=== PATIENT | male | born 1985 | race African-American/Black ===

== ENCOUNTER 2022-10-03 23:21 | Emergency (ER) | payer BC, SELFPAY ==
--- NOTE | ~2022-10-03 | XR_ITS ---
EXAMINATION: XR tibia fibula LT 2V DATE: 10/04/2022 03:00 INDICATION: Left lower leg pain. TECHNIQUE: 2 views of left tibia and fibula on 4 radiographs were obtained. COMPARISON: None. FINDINGS: Bone alignment is normal. No fracture. Joint spaces are well maintained. There is no knee j oint effusion. IMPRESSION: 1. Normal left tibia and fibula. Reviewed, dictated and finalized at location A.
[2022-10-03 23:23] VITALS: BP 132/99; PULSE 81; RESP 14; TEMP 36.6; O2SAT 100
[2022-10-04 03:02] VITALS: BP 136/90; PULSE 74; RESP 18; O2SAT 98
--- NOTE | 2022-10-04 03:06 | PC.NURSE ---
This RN noted no deformity to the back of the right leg/ calf. Pt states when you push and rub on the back of the calf that it starts to burn. This RN did not note any change of temperature to the extremity and felt a pulse to the extremity.
[2022-10-04 03:34] LABS: Basophils Absolute Auto 0.1 K/mm3 (0.0-0.1); Basophils Percent Auto 1.3 % (0.2-1.2); Eosinophils Absolute Auto 0.4 K/mm3 (0-0.3); Eosinophils Percent Auto 8.5 % (0-4.4); Hematocrit 37.1 % (42.0-52.0); Hemoglobin 12.8 g/dL (14.0-18.0); Immature Granulocyte Absolute 0.01 K/mm3 (0.00-0.031); Immature Granulocyte Percent A 0.2 % (0-0.5); Lymphocytes Absolute Auto 1.92 K/mm3 (0.9-3.2); Lymphocytes Percent Auto 41.6 % (18.3-44.2); Mean Corpuscular HGB Conc 34.5 g/dl (32-36); Mean Corpuscular Hemoglobin 30.1 pg (26-34); Mean Corpuscular Volume 87.3 fl (80-100); Mean Platelet Volume 9.1 fl (7.4-10.4); Monocytes Absolute Auto 0.4 K/mm3 (0.1-0.6); Monocytes Percent Auto 8.9 % (2.6-8.5); Neutrophils Absolute Auto 1.8 K/mm3 (1.3-6.7); Neutrophils Percent Auto 39.5 % (45.5-73.1); Platelet Count Result 251 k/mm3 (150-375); Red Blood Count 4.25 M/mm3 (4.6-6.20); Red Cell Distribution Width 13.5 % (11.5-14.5); White Blood Count 4.6 K/mm3 (4.5-10.0)
--- NOTE | 2022-10-04 03:45 | ED.GENADULT ---
HPI - General Adult General Chief complaint: Extremity Injury, Lower Stated complaint: L calf pain Time Seen by Provider: 10/04/22 02:30 History of Present Illness HPI narrative: Patient is a 37-year-old gentleman who presents the emergency department with chief complaint of left lower extremity burning and pain patient reports that he started having burning sensation in his calf of his left leg patient denies chest pain denies shortness of breath reports the discomfort goes down into the foot patient denies trauma denies overuse. Patient does report that he is attempted to rest the area. Related Data Allergies Allergy/AdvReac Type Severity Reaction Status Date / Time No Known Allergies Allergy Unknown Verified 10/04/22 03:02 Review of Systems Review of Systems: A 10 system review of systems was completed on the patient and is negative except for what is stated in the HPI. Nursing and ancillary documentation was reviewed. Exam Narrative: GENERAL: Well-appearing, well-nourished, and in no acute distress. HEAD: Normocephalic, atraumatic. EYES: PERRLA and EOMI. ENT: Nares clear, no rhinorrhea or epistaxis. Mucous membranes moist. NECK: Supple. CHEST: Clear to auscultation. No respiratory distress. HEART: Regular rate and rhythm. No murmur heard. Normal peripheral pulses. ABDOMEN: Soft, nontender, nondistended, normal active bowel sounds. EXTREMITIES: Normal range of motion. No edema. SKIN: Warm, dry, no rash. NEURO: No focal deficits. Alert and oriented x3. PSYCH: Normal mood and affect. Course Vital Signs Vital signs: Vital Signs Temperature 36.6 C 10/03/22 23:23 Pulse Rate 81 10/03/22 23:23 Respiratory Rate 14 10/03/22 23:23 Blood Pressure 132/99 H 10/03/22 23:23 Pulse Oximetry 100 10/03/22 23:23 Oxygen Delivery Room Air 10/03/22 23:23 Temperature 36.6 C 10/03/22 23:23 Pulse Rate 74 10/04/22 03:02 Respiratory Rate 18 10/04/22 03:02 Blood Pressure 136/90 10/04/22 03:02 Pulse Oximetry 98 10/04/22 03:02 Oxygen Delivery Room Air 10/04/22 03:02 Medical Decision Making [facility] Narrative Medical decision making narrative: Differential diagnosis includes DVT, cellulitis, trauma, fracture, foreign body Studies were obtained which showed a white blood cell count of 4.6. D-dimer was positive at 0.63 rest of his electrolytes were within normal limits. ALT and AST were slightly elevated Given the positive D-dimer the patient will be given a milligram per kilogram of Lovenox in the emergency department and will be scheduled for a venous duplex in the morning at 7 AM Vital Signs Vital Signs: Vital Signs Temperature 36.6 C 10/03/22 23:23 Pulse Rate 81 10/03/22 23:23 Respiratory Rate 14 10/03/22 23:23 Blood Pressure 132/99 H 10/03/22 23:23 Pulse Oximetry 100 10/03/22 23:23 Oxygen Delivery Room Air 10/03/22 23:23 Temperature 36.6 C 10/03/22 23:23 Pulse Rate 74 10/04/22 03:02 Respiratory Rate 18 10/04/22 03:02 Blood Pressure 136/90 10/04/22 03:02 Pulse Oximetry 98 10/04/22 03:02 Oxygen Delivery Room Air 10/04/22 03:02 Lab Data 10/04/22 03:27 10/04/22 03:27 Labs: Lab Results 10/04/22 Range/Units 03:27 WBC 4.6 (4.5-10.0) K/mm3 RBC 4.25 L (4.6-6.20) M/mm3 Hgb 12.8 L (14.0-18.0) g/dL Hct 37.1 L (42.0-52.0) % MCV 87.3 (80-100) fl MCH 30.1 (26-34) pg MCHC 34.5 (32-36) g/dl RDW 13.5 (11.5-14.5) % Plt Count 251 (150-375) k/mm3 MPV 9.1 (7.4-10.4) fl Immature Gran % (Auto) 0.2 (0-0.5) % Neut % (Auto) 39.5 L (45.5-73.1) % Lymph % (Auto) 41.6 (18.3-44.2) % Sawyer % (Auto) 8.9 H (2.6-8.5) % Eos % (Auto) 8.5 H (0-4.4) % Baso % (Auto) 1.3 H (0.2-1.2) % Lymph # (Auto) 1.92 (0.9-3.2) K/mm3 Sawyer # (Auto) 0.4 (0.1-0.6) K/mm3 Eos # (Auto) 0.4 H (0-0.3) K/mm3 Baso # (Auto) 0.1 (0.0-0.1) K/mm3 Abs Immat Gran (auto) 0.01 (0.00-0.031)
[2022-10-04 03:48] LABS: INR 0.9; Prothrombin Time 13.1 Seconds (11.1-14.7)
[2022-10-04 03:49] LABS: Partial Thromboplastin Time 27.8 SECONDS (22.3-36.8)
[2022-10-04 03:58] LABS: D Dimer 0.63 ug/mL (<0.48)
[2022-10-04 04:05] LABS: Alanine Aminotransferase 66 U/L (6-50); Albumin Level 4.1 g/dL (3.5-5.1); Alkaline Phosphatase 44 U/L (38-126); Anion Gap 8 mmol/L (8-16); Aspartate Amino Transferase 75 U/L (17-59); Bilirubin,Total 0.6 mg/dL (0.2-1.3); Blood Urea Nitrogen 15 mg/dL (9-20); Calcium 8.6 mg/dL (8.4-10.2); Carbon Dioxide 27 mmol/L (22-30); Chloride 102 mmol/L (98-107); Estimated CRCL calculation 100 ml/min; Estimated Glomerular Filt Rate > 60; Glucose 105 mg/dL (65-110); Potassium 3.7 mmol/L (3.4-5.0); Sodium 137 mmol/L (137-145)
[2022-10-04] MEDS: HYDROcodone/acetaminophen (*CRX) 5-325 MG TABLET 1 TAB PO (04:32)
[2022-10-04] MEDS: ENOXAPARIN 100 MG/ML SYRINGE SUB-Q (04:32)
== END 2022-10-04 04:40 | disposition home or self-care (01) ==
PROVIDERS: Emergency Provider Emergency Medicine
DX: M79.662 Pain in left lower leg (principal)
CPT/HCPCS: 36415; 73590; 80053; 85025; 85380; 85610; 85730; 93971; 96372; 99283; A9270; J1650

== ENCOUNTER 2022-10-04 13:36 | Outpatient (CLI) | payer BC, SELFPAY ==
--- NOTE | ~2022-10-04 | US_ITS ---
EXAMINATION:US venous doppler LE LT INDICATION:Lower extremity pain TECHNIQUE: Multiple grayscale, color flow and Doppler images of the left lower extremity deep venous systems were obtained and reviewed. COMPARISON:No prior studies for comparison. FINDINGS: The common femoral, superficial femoral and popliteal veins demonstrate normal respiratory variation, augmentation and compressibility. Color flow is also seen within the posterior tibial, pe roneal, greater saphenous and profunda veins. IMPRESSION: 1: No lower extremity deep venous thrombosis. Reviewed, dictated and finalized at location B.
== END 2022-10-04 13:37 | disposition home or self-care (01) ==
PROVIDERS: Visit Provider Emergency Medicine
DX: M79.662 Pain in left lower leg (principal); R79.89 Other specified abnormal findings of blood chemistry
CPT/HCPCS: 93971